=== PATIENT | female | born 1945 | race Caucasian/White ===

== ENCOUNTER 2016-09-22 12:51 | Inpatient (IN) | payer MEDICARE ==
[2016-09-22] VITALS (9 sets, daily range): BP systolic 120–199; BP diastolic 62–74; PULSE 54–70; RESP 16–18; TEMP 96.5–98.3; O2SAT 95–100
[~2016-09-22] VITALS: Ht 160 cm; Wt 86.7 kg
[~2016-09-22 12:51] MED LIST: AMLO5TAB22 PO; ATEN-100 PO; HYDR-2768 PO; LEVO125T3 PO
--- NOTE | 2016-09-22 13:16 | PD ---
HPI Chief Complaint: anemia Time Seen by Provider: 13:11 Travel History International Travel<30 days: No Contact w/Intl Traveler<30days: No Traveled to known affect area: No History of Present Illness HPI 80-year-old female patient presents to the ER today sent in by her primary care physician because she states that she has had dyspnea on exertion and general weakness since and she had lab work done at her doctor's office today and was told to come to the ER because of low hemoglobin. She denies any black stools, blood in the stools, and does not know the source of bleeding. She states that she has been dealing with scabies in the past few weeks and has been getting worked up by several specialties. She does not know of any sources of bleeding. Modifying Factors: None Associated Signs & Symptoms: Low blood counts Risk Factors: None PFSH Past Medical History Diminished Hearing: No Hypertension: Yes Kidney Stones: Yes Thyroid Disease: Yes Social History Alcohol Use: No Tobacco Use: No Substance Use: No Allergies-Medications (Allergen,Severity, Reaction): Coded Allergies: Vasotec (Verified Allergy, Severe, Hives, 09/22/16) Reported Meds & Prescriptions Reported Meds & Active Scripts Active Reported Miralax Powder (Polyethylene Glycol 3350 Powder) 17 Gm Powd 17 Gm PO DAILY PRN Mix and dissolve one measuring cap-ful (17 grams) in water or juice. Preservision Areds (Multiple Vitamins W/ Minerals) 1 Tab 1 Tab PO DAILY Permethrin Topical (Permethrin) 5% Cream 1 Applic TOPICAL DIRECTED Pantoprazole (Pantoprazole Sodium) 40 Mg Tab 40 Mg PO DAILY Levothyroxine (Levothyroxine Sodium) 25 Mcg Tab 25 Mcg PO DAILY Hydrochlorothiazide 25 Mg Tab 25 Mg PO DAILY Calcium (Calcium Carbonate) 600 Mg Tab 1 Tab PO DAILY Atenolol 25 Mg Tab 25 Mg PO DAILY Amlodipine (Amlodipine Besylate) 5 Mg Tab 5 Mg PO DAILY Review of Systems Except as stated in HPI: all other systems reviewed are Neg Physical Exam Narrative GENERAL: Well-developed elderly white female patient who is mildly anxious, in mild distress. Awake and oriented 3. SKIN: Focused skin assessment warm/dry. HEAD: Atraumatic. Normocephalic. EYES: Pupils equal and round. No scleral icterus. No injection or drainage. ENT: No nasal bleeding or discharge. Mucous membranes pink and moist. NECK: Trachea midline. No JVD. CARDIOVASCULAR: Regular rate and rhythm. No murmur appreciated. RESPIRATORY: No accessory muscle use. Clear to auscultation. Breath sounds equal bilaterally. GASTROINTESTINAL: Abdomen soft, non-tender, nondistended. Hepatic and splenic margins not palpable. MUSCULOSKELETAL: No obvious deformities. No clubbing. No cyanosis. No edema. NEUROLOGICAL: Awake and alert. No obvious cranial nerve deficits. Motor grossly within normal limits. Normal speech. PSYCHIATRIC: Appropriate mood and affect; insight and judgment normal. Data Data Last Documented VS Vital Signs Date Time Temp Pulse Resp B/P Pulse Ox O2 Delivery O2 Flow Rate FiO2 09/22/16 13:44 70 16 99 Room Air 09/22/16 13:00 98.3 152/70 Orders Complete Blood Count With Diff (09/22/16 13:12) Basic Metabolic Panel (Bmp) (09/22/16 13:12) Prothrombin Time / Inr (Pt) (09/22/16 13:12) Act Partial Throm Time (Ptt) (09/22/16 13:12) Type And Screen (09/22/16 13:12) Red Blood Cells (Rbc) (09/22/16 14:08) Blood Product Administration .UPON TRANSFUSION (09/22/16 14:08) Sodium Chlor 0.9% 250 Ml Inj (Ns 250 Ml (09/22/16 14:15) Admit Order (Ed Use Only) (09/22/16 14:35) Labs Laboratory Tests Test 09/22/16 13:35 White Blood Count 6.9 TH/MM3 Red Blood Count 3.10 MIL/MM3 Hemoglobin 6.1 GM/DL Hematocrit 20.1 % Mean Corpuscular Volume 64.7 FL Mean Corpuscular Hemoglobin 19.5 PG Mean Corpuscular Hemoglobin 30.2 % Concent Red Cell Distribution Width 17.6 % Platelet Count 297 TH/MM3 Mean Platelet Volume 7.7 FL Neutrophils (%) (Auto) 65.4 % Lymphocytes (%) (Auto) 23.6 % Monocytes (%) (Auto) 7.6 % Eosinophils (%) (Auto) 2.8 % Basophils (%) (Auto) 0.6 % Neutrophils # (Auto) 4.6 TH/MM3 Lymphocytes # (Auto) 1.6 TH/MM3 Monocytes # (Auto) 0.5 TH/MM3 Eosinophils # (Auto) 0.2 TH/MM3 Basophils # (Auto) 0.0 TH/MM3 CBC Comment AUTO DIFF Differential Comment AUTO DIFF CONFIRMED Basophilic Stippling FAINT Prothrombin Time 11.2 SEC Prothromb Time International 1.0 RATIO Ratio Activated Partial 23.2 SEC Thromboplast Time Sodium Level 143 MEQ/L Potassium Level 3.9 MEQ/L Chloride Level 109 MEQ/L Carbon Dioxide Level 24.7 MEQ/L Anion Gap 9 MEQ/L Blood Urea Nitrogen 13 MG/DL Creatinine 1.30 MG/DL Estimat Glomerular Filtration 40 ML/MIN Rate Random Glucose 126 MG/DL Calcium Level 8.6 MG/DL [facility] Medical Decision Making Medical Screen Exam Complete: Yes Emergency Medical Condition: Yes Medical Record Reviewed: Yes Interpretation(s) Laboratory Tests Test 09/22/16 13:35 Red Blood Count 3.10 MIL/MM3 (4.00-5.30) Hemoglobin 6.1 GM/DL (11.6-15.3) Hematocrit 20.1 % (35.0-46.0) Mean Corpuscular Volume 64.7 FL (80.0-100.0) Mean Corpuscular Hemoglobin 19.5 PG (27.0-34.0) Mean Corpuscular Hemoglobin 30.2 % Concent (32.0-36.0) Red Cell Distribution Width 17.6 % (11.6-17.2) Activated Partial 23.2 SEC Thromboplast Time (24.3-30.1) Chloride Level 109 MEQ/L (98-107) Creatinine 1.30 MG/DL (0.50-1.00) Estimat Glomerular Filtration 40 ML/MIN (>89) Rate Random Glucose 126 MG/DL (74-106) Differential Diagnosis Low hemoglobin versus dysrhythmia versus anxiety Narrative Course Lab work shows a hemoglobin of 6. At this point, my plan would be to admit the patient for further evaluation and treatment of anemia. Case is discussed with Dr. diane for admission. Diagnosis Primary Impression: Symptomatic anemia Admitting Information Admitting Physician Requests: it Mario Mukherjee MD September 22, 2016 13:16
[2016-09-22 13:42] LABS: AUTOMATED NEUTROPHIL # 4.6 TH/MM3 (1.8-7.7); BASOPHIL % 0.6 % (0.0-2.0); EOSINOPHIL # 0.2 TH/MM3 (0-0.4); EOSINOPHIL % 2.8 % (0.0-4.0); LYMPH % 23.6 % (9.0-44.0); LYMPHOCYTE # 1.6 TH/MM3 (1.0-4.8); MEAN CELL VOLUME 64.7 FL (80.0-100.0); MEAN CORPUSCULAR HEMOGLOBIN 19.5 PG (27.0-34.0); MEAN CORPUSCULAR HGB CONC 30.2 % (32.0-36.0); MONO % 7.6 % (0.0-8.0); NEUT % 65.4 % (16.0-70.0); PLATELET COUNT 297 TH/MM3 (150-450); RED CELL DISTRIBUTION WIDTH 17.6 % (11.6-17.2); WHITE BLOOD COUNT 6.9 TH/MM3 (4.0-11.0)
[2016-09-22 13:44] LABS: HEMO FLAGS AUTO DIFF
[2016-09-22 13:45] LABS: HEMATOCRIT 20.1 % (35.0-46.0)
[2016-09-22 13:50] LABS: POTASSIUM 3.9 MEQ/L (3.5-5.1)
[2016-09-22 13:53] LABS: BICARBONATE 24.7 MEQ/L (21.0-32.0)
[2016-09-22 13:54] LABS: APTT (PATIENT) 23.2 SEC (24.3-30.1); PROTHROMBIN TIME - PATIENT 11.2 SEC (9.8-11.6)
[2016-09-22] MEDS ORDERED: CALC600T25 PO (13:56)
[2016-09-22] MEDS ORDERED: AMLO5TAB2 PO ×2 (13:56→15:50)
[2016-09-22] MEDS ORDERED: HYDR25TA5 PO (13:56)
[2016-09-22] MEDS ORDERED: ATEN25TA PO (13:56)
[2016-09-22] MEDS ORDERED: LEVO25TA4 PO ×2 (13:56→15:50)
[2016-09-22] MEDS ORDERED: OCUVTAB4 PO (13:56)
[2016-09-22] MEDS ORDERED: PANT40TA3 PO (13:56)
[2016-09-22] MEDS ORDERED: PERM5CRE TOPICAL (13:56)
[2016-09-22] MEDS ORDERED: MIRA33504 PO (13:57)
[2016-09-22 14:13] LABS: SCAN/DIFF AUTO DIFF CONFIRMED
[2016-09-22] MEDS ORDERED: SODIUM CHLOR 0.9% 250 ML INJ 250 ML IV ONE (14:15)
[2016-09-22] MEDS ORDERED: POLYETHYLENE GLYCOL 17 GM PKG PO PRN (15:45)
[2016-09-22] MEDS: HYDROCHLOROTHIAZIDE 25 MG TAB PO SCH (16:58)
[2016-09-22] MEDS: ATENOLOL 25 MG TAB PO SCH (16:58)
[2016-09-22] MEDS: PANTOPRAZOLE SOD 40 MG DELAYED RELEASE TAB PO SCH (16:58)
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
[2016-09-22 18:19] LABS: TRANSFERRIN IRON PROFILE 390 MG/DL (200-360)
[2016-09-22 18:44] LABS: FERRITIN 3 NG/ML (8-252)
[2016-09-23 00:25] VITALS: BP 144/73; PULSE 57; RESP 18; TEMP 97.9; O2SAT 93
[2016-09-23] MEDS ORDERED: LEVOTHYROXINE SODIUM 50 MCG TAB PO SCH (06:00)
[2016-09-23 07:51] LABS: POTASSIUM 4.1 MEQ/L (3.5-5.1)
[2016-09-23 07:52] LABS: BASOPHIL # 0.1 TH/MM3 (0-0.2); BASOPHIL % 0.6 % (0.0-2.0); EOSINOPHIL # 0.2 TH/MM3 (0-0.4); EOSINOPHIL % 1.7 % (0.0-4.0); HEMATOCRIT 28.5 % (35.0-46.0); LYMPH % 23.8 % (9.0-44.0); LYMPHOCYTE # 2.2 TH/MM3 (1.0-4.8); MEAN CELL VOLUME 70.4 FL (80.0-100.0); MEAN CORPUSCULAR HEMOGLOBIN 21.5 PG (27.0-34.0); MEAN CORPUSCULAR HGB CONC 30.6 % (32.0-36.0); MONO % 7.6 % (0.0-8.0); NEUT % 66.3 % (16.0-70.0); PLATELET COUNT 329 TH/MM3 (150-450); RED BLOOD COUNT 4.04 MIL/MM3 (4.00-5.30); RED CELL DISTRIBUTION WIDTH 20.1 % (11.6-17.2); WHITE BLOOD COUNT 9.2 TH/MM3 (4.0-11.0)
[2016-09-23 07:53] LABS: HEMO FLAGS AUTO DIFF
[2016-09-23 07:57] LABS: BICARBONATE 26.1 MEQ/L (21.0-32.0)
[2016-09-23 08:00] VITALS: BP 136/59; PULSE 55; RESP 20; TEMP 97.4; O2SAT 95
[2016-09-23 08:13] LABS: SCAN/DIFF AUTO DIFF CONFIRMED
[2016-09-23] MEDS: ATENOLOL 25 MG TAB PO SCH (08:20)
[2016-09-23] MEDS: PANTOPRAZOLE SOD 40 MG DELAYED RELEASE TAB PO SCH (08:20)
[2016-09-23] MEDS: HYDROCHLOROTHIAZIDE 25 MG TAB PO SCH (08:20)
[2016-09-23 08:23] VITALS: PULSE 61
--- NOTE | 2016-09-23 08:42 | HHI.PR ---
Subjective Remarks She has no complaints. She feels stronger after 2 units of packed red blood cells. Objective Vitals Vital Signs Date Time Temp Pulse Resp B/P Pulse Ox O2 Delivery O2 Flow Rate FiO2 09/23/16 08:23 61 09/23/16 08:00 97.4 55 20 136/59 95 09/23/16 05:42 09/23/16 00:25 97.9 57 18 144/73 93 09/22/16 22:50 97.2 55 18 148/62 97 09/22/16 22:31 96.9 58 18 152/65 97 09/22/16 22:22 96.9 18 146/65 98 09/22/16 20:25 96.9 55 16 148/62 97 09/22/16 18:34 98.0 60 18 144/64 98 09/22/16 18:10 96.5 54 16 120/64 95 09/22/16 16:00 72 16 147/66 09/22/16 16:00 97.8 62 18 199/64 100 09/22/16 15:45 78 16 97 Room Air 09/22/16 14:00 70 16 144/74 97 Room Air 09/22/16 13:44 70 16 99 Room Air 09/22/16 13:00 98.3 68 16 152/70 99 09/22/16 09/22/16 09/23/16 15:00 23:00 07:00 Intake Total 352 ml 0 ml Balance 352 ml 0 ml Intake IV Total 352 ml 0 ml # Voids 1 Result Diagram: 09/23/16 0700 09/23/16 0700 Other Results Laboratory Tests Test 09/22/16 09/22/16 09/23/16 13:35 14:21 07:00 White Blood Count 6.9 TH/MM3 9.2 TH/MM3 Red Blood Count 3.10 MIL/MM3 4.04 MIL/MM3 Hemoglobin 6.1 GM/DL 8.7 GM/DL Hematocrit 20.1 % 28.5 % Mean Corpuscular Volume 64.7 FL 70.4 FL Mean Corpuscular Hemoglobin 19.5 PG 21.5 PG Mean Corpuscular Hemoglobin 30.2 % 30.6 % Concent Red Cell Distribution Width 17.6 % 20.1 % Platelet Count 297 TH/MM3 329 TH/MM3 Mean Platelet Volume 7.7 FL 9.0 FL Neutrophils (%) (Auto) 65.4 % 66.3 % Lymphocytes (%) (Auto) 23.6 % 23.8 % Monocytes (%) (Auto) 7.6 % 7.6 % Eosinophils (%) (Auto) 2.8 % 1.7 % Basophils (%) (Auto) 0.6 % 0.6 % Neutrophils # (Auto) 4.6 TH/MM3 6.0 TH/MM3 Lymphocytes # (Auto) 1.6 TH/MM3 2.2 TH/MM3 Monocytes # (Auto) 0.5 TH/MM3 0.7 TH/MM3 Eosinophils # (Auto) 0.2 TH/MM3 0.2 TH/MM3 Basophils # (Auto) 0.0 TH/MM3 0.1 TH/MM3 CBC Comment AUTO DIFF AUTO DIFF Differential Comment AUTO DIFF AUTO DIFF CONFIRMED CONFIRMED Basophilic Stippling FAINT Prothrombin Time 11.2 SEC Prothromb Time International 1.0 RATIO Ratio Activated Partial 23.2 SEC Thromboplast Time Sodium Level 143 MEQ/L 143 MEQ/L Potassium Level 3.9 MEQ/L 4.1 MEQ/L Chloride Level 109 MEQ/L 108 MEQ/L Carbon Dioxide Level 24.7 MEQ/L 26.1 MEQ/L Anion Gap 9 MEQ/L 9 MEQ/L Blood Urea Nitrogen 13 MG/DL 11 MG/DL Creatinine 1.30 MG/DL 1.20 MG/DL Estimat Glomerular Filtration 40 ML/MIN 44 ML/MIN Rate Random Glucose 126 MG/DL 103 MG/DL Calcium Level 8.6 MG/DL 8.7 MG/DL Iron Level 17 MCG/DL Total Iron Binding Capacity 546 MCG/DL Percent Iron Saturation 3.1 % Ferritin 3 NG/ML Vitamin B12 Level 373 PG/ML Folate 7.0 NG/ML Blood Type A POSITIVE A POSITIVE Antibody Screen NEGATIVE Crossmatch Leukocyte-Reduced Red Blood Cells Blood Bank Comment Objective Remarks Exam: Obese female in no distress. HEENT: Pupils equal, no scleral icterus, mouth negative Neck: No JVD Heart: RRR with no murmur Lungs: Clear Abdomen: Soft, nontender Extremities: No edema Neuro: No focal signs, alert, oriented. A/P Assessment and Plan Assessment: --Severe hypochromic microcytic anemia that likely occurred progressively over several months and may have been from intermittent hemorrhoidal bleeding --Iron deficiency --Hypertension --Hypothyroidism --GERD/Hiatal hernia --Stage 3 CKD Plan: She received 2 units of packed red blood cells and her Hg came up from 6.1 to 8.7. Her iron levels are quite low so she has been put on Ferrous sulfate. She can be discharged today on Ferrous Sulfate 325mg three times a day and will do a followup CBC early next week and see her PCP (Dr Dykes) to get a referral to gastroenterology for GI workup and possible treatment of her hemorrhoidal bleeding. She will continue on Pantoprazole and other home medications. Noman Nguyen MD September 23, 2016 08:42
[2016-09-23] MEDS ORDERED: FERR325T PO (08:48)
[2016-09-23] MEDS ORDERED: CALCIUM CARBONATE 500 MG CHEWABLE TAB PO SCH (09:00)
[2016-09-23] MEDS ORDERED: MULTIVITAMINS/MINERALS THERAPEUTIC TAB PO SCH (09:00)
[2016-09-23] MEDS ORDERED: FERROUS SULFATE 325 MG (65 MG ELEMENTAL IRON) TAB PO SCH (09:00)
== END 2016-09-23 11:14 | disposition home or self-care (01) | DRG 812 ==
LOC: PHED 12:51 → PHEDA 14:35 → PH3A 15:51
PROVIDERS: ADMIT Family Medicine; ATTEND Family Medicine
PROC: 30233N1 Transfusion of Nonautologous Red Blood Cells into Peripheral Vein, Percutaneous Approach (ICD-10-PCS; principal; 2016-09-22)
DX: D50.0 Iron deficiency anemia secondary to blood loss (chronic) (principal); N18.3 Chronic kidney disease, stage 3 (moderate); E53.8 Deficiency of other specified B group vitamins; E55.9 Vitamin D deficiency, unspecified; I12.9 Hypertensive chronic kidney disease with stage 1 through stage 4 chronic kidney disease, or unspecified chronic kidney disease; E03.9 Hypothyroidism, unspecified; K21.9 Gastro-esophageal reflux disease without esophagitis
CPT/HCPCS: 36430; 80048; 82607; 82728; 82746; 83540; 83550; 85025; 85610; 85730; 86850; 86900; 86901; 86920; 99285; J7050; P9016

== ENCOUNTER 2016-10-04 12:16 | Emergency (ER) | payer MEDICARE ==
[~2016-10-04] VITALS: Ht 160 cm; Wt 86.0 kg
[~2016-10-04 12:16] MED LIST changes: +AMLO5TAB2 PO; -AMLO5TAB22 PO; -ATEN-100 PO; +ATEN25TA PO; +CALC600T25 PO; +FERR325T PO; -HYDR-2768 PO; +HYDR25TA5 PO; -LEVO125T3 PO; +LEVO25TA4 PO; +MIRA33504 PO; +OCUVTAB4 PO; +PANT40TA3 PO
[2016-10-04 12:27] VITALS: BP 158/74; PULSE 75; RESP 18; TEMP 97.8; O2SAT 98
[2016-10-04 12:56] VITALS: BP_SYST 154; BP_SYST 155; BP_DIAS 64
[2016-10-04] MEDS ORDERED: SODIUM CHLORIDE 0.9% FLUSH 10 ML FLUSH IVF PRN (13:00)
[2016-10-04] MEDS ORDERED: SODIUM CHLORID 0.9% 500 ML INJ 500 ML IV ONE (13:00)
--- NOTE | 2016-10-04 13:03 | PD ---
HPI Chief Complaint: Dizziness Time Seen by Provider: 12:37 Travel History International Travel<30 days: No Contact w/Intl Traveler<30days: No Traveled to known affect area: No History of Present Illness HPI The patient is a 71-year-old female who presents emergency department for dizziness, lightheadedness, and "foggy vision ". The patient has a recent history of anemia over the last 9 months, was admitted within the last month for symptomatic anemia. The patient had a transfusion at that time and was subsequently discharged home. The patient had an appointment with her business account manager today, Dr. Carranza, however, presented to the emergency department with increasing symptoms. The patient states she is currently taking iron and is also under evaluation for possible parasitic/intestinal worm infestation. The patient states occasionally she will have worms when she vomits her cough as well as occasional worms in her stool. The patient has seen an infectious disease for this and is currently on ivermectin. The patient does have a well with well water, but denies any recent international travel. The patient's symptoms are worse with standing upright and occasionally with exertion, denies any acute chest pain or shortness of breath. The patient's primary physician is Dr. Helms. PFS Past Medical History Cardiovascular Problems: Yes (htn on meds) Diminished Hearing: No GERD: Yes Hypertension: Yes Kidney Stones: Yes Psychiatric: No Migraines: Yes Thyroid Disease: Yes ?: Not Ectopic : Yes (with one tube removed) Past Surgical History Abdominal Surgery: Yes (right groin hernia repair) Appendectomy: Yes Social History Alcohol Use: No Tobacco Use: No Substance Use: No Allergies-Medications (Allergen,Severity, Reaction): Coded Allergies: Vasotec (Verified Allergy, Severe, Hives, 10/04/16) Reported Meds & Prescriptions Reported Meds & Active Scripts Active Ferrous Sulfate 325 Mg Tab 325 Mg PO TID Levothyroxine (Levothyroxine Sodium) 25 Mcg Tab 50 Mcg PO DAILY Amlodipine (Amlodipine Besylate) 5 Mg Tab 10 Mg PO DAILY Reported Miralax Powder (Polyethylene Glycol 3350 Powder) 17 Gm Powd 17 Gm PO DAILY PRN Mix and dissolve one measuring cap-ful (17 grams) in water or juice. Preservision Areds (Multiple Vitamins W/ Minerals) 1 Tab 1 Tab PO DAILY Pantoprazole (Pantoprazole Sodium) 40 Mg Tab 40 Mg PO DAILY Hydrochlorothiazide 25 Mg Tab 25 Mg PO DAILY Calcium (Calcium Carbonate) 600 Mg Tab 1 Tab PO DAILY Atenolol 25 Mg Tab 25 Mg PO DAILY Review of Systems Except as stated in HPI: all other systems reviewed are Neg General / Constitutional: No: Fever Eyes: Positive: Other (occasional "foggy vision") HENT: Positive: Lightheadedness Cardiovascular: No: Chest Pain or Discomfort Respiratory: No: Shortness of Breath Gastrointestinal: No: Nausea, Vomiting, Abdominal Pain Musculoskeletal: Positive: Weakness Neurologic: Positive: Weakness, Dizziness Physical Exam Narrative GENERAL: Awake, alert, pleasant 71-year-old female who appears her stated age and is in no acute respiratory distress. SKIN: Focused skin assessment warm/dry. HEAD: Atraumatic. Normocephalic. EYES: Pupils equal and round. No scleral icterus. No injection or drainage. No obvious pallor. ENT: No nasal bleeding or discharge. Mucous membranes pink and moist. NECK: Trachea midline. No JVD. CARDIOVASCULAR: Regular rate and rhythm. No murmur appreciated. Heart rate in the 60s. RESPIRATORY: No accessory muscle use. Clear to auscultation. Breath sounds equal bilaterally. GASTROINTESTINAL: Abdomen soft, non-tender, nondistended. No rebound tenderness. Palpable mass in the mid right abdomen, patient states it is an old hematoma. Rectal: External hemorrhoids with no active bleeding. No gross blood. Guaiac negative. MUSCULOSKELETAL: No obvious deformities. No clubbing. No cyanosis. No edema. NEUROLOGICAL: Awake and alert. No obvious cranial nerve deficits. Motor grossly within normal limits. Normal speech. PSYCHIATRIC: Appropriate mood and affect; insight and judgment normal. Data Data Last Documented VS Vital Signs Date Time Temp Pulse Resp B/P Pulse Ox O2 Delivery O2 Flow Rate FiO2 10/04/16 13:04 98 Room Air 10/04/16 12:56 68 154/64 86 155/64 10/04/16 12:27 97.8 18 Orders Electrocardiogram (10/04/16 12:50) Complete Blood Count With Diff (10/04/16 12:50) Comprehensive Metabolic Panel (10/04/16 12:50) Magnesium (Mg) (10/04/16 12:50) Ecg Monitoring (10/04/16 12:50) Iv Access Insert/Monitor (10/04/16 12:50) Oximetry (10/04/16 12:50) Sodium Chloride 0.9% Flush (Ns Flush) (10/04/16 13:00) Orthostatic Vital Signs (10/04/16 12:50) Sodium Chlorid 0.9% 500 Ml Inj (Ns 500 M (10/04/16 13:00) Labs Laboratory Tests Test 10/04/16 12:58 White Blood Count 8.4 TH/MM3 Red Blood Count 4.38 MIL/MM3 Hemoglobin 10.4 GM/DL Hematocrit 32.4 % Mean Corpuscular Volume 74.0 FL Mean Corpuscular Hemoglobin 23.8 PG Mean Corpuscular Hemoglobin 32.2 % Concent Red Cell Distribution Width 27.0 % Platelet Count 270 TH/MM3 Mean Platelet Volume 8.9 FL Neutrophils (%) (Auto) 73.5 % Lymphocytes (%) (Auto) 16.4 % Monocytes (%) (Auto) 6.6 % Eosinophils (%) (Auto) 1.8 % Basophils (%) (Auto) 1.7 % Neutrophils # (Auto) 6.1 TH/MM3 Lymphocytes # (Auto) 1.4 TH/MM3 Monocytes # (Auto) 0.6 TH/MM3 Eosinophils # (Auto) 0.2 TH/MM3 Basophils # (Auto) 0.1 TH/MM3 CBC Comment AUTO DIFF Sodium Level 141 MEQ/L Potassium Level 3.9 MEQ/L Chloride Level 108 MEQ/L Carbon Dioxide Level 24.3 MEQ/L Anion Gap 9 MEQ/L Blood Urea Nitrogen 12 MG/DL Creatinine 1.40 MG/DL Estimat Glomerular Filtration 37 ML/MIN Rate Random Glucose 155 MG/DL Calcium Level 9.1 MG/DL Magnesium Level 2.3 MG/DL Total Bilirubin 0.5 MG/DL Aspartate Amino Transf 17 U/L (AST/SGOT) Alanine Aminotransferase 14 U/L (ALT/SGPT) Total Protein 8.1 GM/DL Albumin 3.4 GM/DL [facility] Medical Decision Making Medical Screen Exam Complete: Yes Emergency Medical Condition: Yes Medical Record Reviewed: Yes Interpretation(s) EKG reveals normal sinus rhythm with a rate of 69. Right bundle-branch block. Nonspecific T wave changes. Laboratory Tests Test 10/04/16 12:58 White Blood Count 8.4 TH/MM3 Red Blood Count 4.38 MIL/MM3 Hemoglobin 10.4 GM/DL Hematocrit 32.4 % Mean Corpuscular Volume 74.0 FL Mean Corpuscular Hemoglobin 23.8 PG Mean Corpuscular Hemoglobin 32.2 % Concent Red Cell Distribution Width 27.0 % Platelet Count 270 TH/MM3 Mean Platelet Volume 8.9 FL Neutrophils (%) (Auto) 73.5 % Lymphocytes (%) (Auto) 16.4 % Monocytes (%) (Auto) 6.6 % Eosinophils (%) (Auto) 1.8 % Basophils (%) (Auto) 1.7 % Neutrophils # (Auto) 6.1 TH/MM3 Lymphocytes # (Auto) 1.4 TH/MM3 Monocytes # (Auto) 0.6 TH/MM3 Eosinophils # (Auto) 0.2 TH/MM3 Basophils # (Auto) 0.1 TH/MM3 CBC Comment AUTO DIFF Sodium Level 141 MEQ/L Potassium Level 3.9 MEQ/L Chloride Level 108 MEQ/L Carbon Dioxide Level 24.3 MEQ/L Anion Gap 9 MEQ/L Blood Urea Nitrogen 12 MG/DL Creatinine 1.40 MG/DL Estimat Glomerular Filtration 37 ML/MIN Rate Random Glucose 155 MG/DL Calcium Level 9.1 MG/DL Magnesium Level 2.3 MG/DL Total Bilirubin 0.5 MG/DL Aspartate Amino Transf 17 U/L (AST/SGOT) Alanine Aminotransferase 14 U/L (ALT/SGPT) Total Protein 8.1 GM/DL Albumin 3.4 GM/DL Differential Diagnosis Differential diagnosis includes symptomatic anemia, orthostatic hypotension, arrhythmia, hyponatremia, hypokalemia. Narrative Course IV was established, labs are drawn and sent, and the patient was placed on cardiac telemetry monitoring and continuous pulse oximetry monitoring. EKG was ordered and interpreted. EKG revealed right bundle branch block with nonspecific T wave changes. CBC was sent to lab. I reviewed the patient's EMR and her previous hospitalization where hemoglobin was 6.1, she was transfused and discharged home with a hemoglobin of 8.7. The patient's hemoglobin today is 10.4, MCV has improved from the 60s to the mid to low 70s. We called the patient's business account manager office, they will reschedule her for this afternoon , the patient will be discharged with a copy of her labs and is advised to follow-up with her business account manager that she most likely will need endoscopy and/or colonoscopy. [facility] Point of Care Internal Pos. & Neg. Controls: Passed Fecal Specimen Occult Blood: Negative Diagnosis Primary Impression: Microcytic anemia Patient Instructions: General Instructions Additional Instructions: Continue the iron as previously directed. Follow-up with her business account manager today. Please provide a patient a copy of her labs at discharge. Med/Other Pt SpecificInfo: No Change to Meds Disposition: 01 DISCHARGE HOME Condition: Stable Jerad Alvarez MD October 04, 2016 13:03
[2016-10-04 13:04] VITALS: O2SAT 98
[2016-10-04 13:06] LABS: AUTOMATED NEUTROPHIL # 6.1 TH/MM3 (1.8-7.7); BASOPHIL # 0.1 TH/MM3 (0-0.2); BASOPHIL % 1.7 % (0.0-2.0); EOSINOPHIL # 0.2 TH/MM3 (0-0.4); EOSINOPHIL % 1.8 % (0.0-4.0); HEMATOCRIT 32.4 % (35.0-46.0); LYMPH % 16.4 % (9.0-44.0); LYMPHOCYTE # 1.4 TH/MM3 (1.0-4.8); MEAN CORPUSCULAR HEMOGLOBIN 23.8 PG (27.0-34.0); MEAN CORPUSCULAR HGB CONC 32.2 % (32.0-36.0); MONO % 6.6 % (0.0-8.0); NEUT % 73.5 % (16.0-70.0); PLATELET COUNT 270 TH/MM3 (150-450); RED BLOOD COUNT 4.38 MIL/MM3 (4.00-5.30); WHITE BLOOD COUNT 8.4 TH/MM3 (4.0-11.0)
[2016-10-04 13:10] LABS: HEMO FLAGS AUTO DIFF
[2016-10-04 13:14] LABS: CHLORIDE 108 MEQ/L (98-107); POTASSIUM 3.9 MEQ/L (3.5-5.1); SODIUM (NA) 141 MEQ/L (136-145)
[2016-10-04 13:18] LABS: ANION GAP 9 MEQ/L (5-15); BICARBONATE 24.3 MEQ/L (21.0-32.0); BLOOD UREA NITROGEN 12 MG/DL (7-18); MAGNESIUM 2.3 MG/DL (1.5-2.5)
[2016-10-04 13:21] LABS: ALT (GPT) 14 U/L (10-53); AST (GOT) 17 U/L (15-37); GLOMERULAR FILTRATION RATE 37 ML/MIN (>89)
[2016-10-04 13:22] LABS: TOTAL BILIRUBIN ADULT 0.5 MG/DL (0.2-1.0)
[2016-10-04 13:23] LABS: ALKALINE PHOSPHATASE 85 U/L (45-117)
[2016-10-04 13:27] LABS: SCAN/DIFF AUTO DIFF CONFIRMED
--- NOTE | 2016-10-05 13:45 | EKG ---
Date Performed: 10/04/2016 Time Performed: 12:53:00 PTAGE: 71 years EKG: Sinus rhythm Right bundle branch block Inferior T wave changes are nonspecific Abnormal ECG NO PREVIOUS TRACING DOCTOR: Noman Hollis Interpretating Date/Time 10/05/2016 13:40:40
== END 2016-10-04 13:41 | disposition home or self-care (01) ==
LOC: PHED 12:16
DX: D50.9 Iron deficiency anemia, unspecified (principal); R42 Dizziness and giddiness; I10 Essential (primary) hypertension; K21.9 Gastro-esophageal reflux disease without esophagitis; R94.31 Abnormal electrocardiogram [ECG] [EKG]
CPT/HCPCS: 80053; 83735; 85025; 93005; 99284; J7040